=== PATIENT | male | born 1975 | race Caucasian/White ===

== ENCOUNTER → 2017-01-31 16:07 | Outpatient (CLI) | payer OTHER ==
[2015-07-12 15:32] VITALS: BMI 37.5
[~2017-01-31 16:07] MED LIST: ASPIRIN325 MG PO; BUMEX 1 MG TAB1 MG PO; FLECTOR1 PATCH TP; K-DUR20 MEQ PO; LASIX20 MG PO; LISINOPRIL5 MG PO; MULTI-DAY VITAM1 TAB PO; SKELAXIN800 MG PO; ULTRAM50 MG PO
== END | disposition home or self-care (01) ==
LOC: D.CT 16:07
DX: R93.5 Abnormal findings on diagnostic imaging of other abdominal regions, including retroperitoneum (principal)